=== PATIENT | female | born 2000 | race African-American/Black ===

== ENCOUNTER 2020-11-07 21:56 | Emergency (ER) | payer OTHER ==
[~2020-11-07] VITALS: Ht 167.6 cm; Wt 55.8 kg
--- NOTE | 2020-11-07 22:05 | NUR ---
DELICIA FROM HOME FOR C/O WORSENING ABD CRAMP AND N/V. LMP: 11/04/20. PER PT SHE IS NEWLY DIAGNOSED WITH OVARIAN CYST AND SHE IS EXPRIENCING THIS SEVERE CRAMP AND BLEEDING ALMOST EVERY MONTH. PT WAS ASSISTED TO BED 3 ER. WAS PLACED ON A MONITOR .VSS,
--- NOTE | 2020-11-07 22:20 | NUR ---
URINE COLLECTED. SENT TO LAB
[2020-11-07] MEDS ORDERED: ONDANSETRON HCL/PF 4 MG/2 ML VIAL ONE (22:24)
[2020-11-07] MEDS ORDERED: MORPHINE SULFATE INJ 4 MG/ML DISP.SYRIN ONE (22:24)
[2020-11-07] MEDS ORDERED: MORPHINE SULFATE INJ 2 MG/ML DISP.SYRIN IV ONE (22:30)
[2020-11-07] MEDS ORDERED: IV NS 0.9% 1,000 ML BAG IV ONE (22:30)
[2020-11-07] MEDS ORDERED: ONDANSETRON HCL/PF 4 MG/2 ML VIAL IVP ONE (22:30)
[2020-11-07 22:34] LABS: BASOPHILS # (AUTO) 0.1 /CMM (0.0-0.2); BASOPHILS % (AUTO) 0.7 % (0.0-2.0); HEMATOCRIT 44 % (33-45); HEMOGLOBIN 15.3 g/dL (11.5-14.8); LYMPHOCYTES # (AUTO) 0.5 /CMM (0.8-4.8); LYMPHOCYTES % (AUTO) 5.2 % (20.0-44.0); MEAN CORPUSCULAR HGB CONC 35 g/dl (31.0-36.0); MEAN CORPUSCULAR VOLUME 95 fL (82-100); MONOCYTES # (AUTO) 0.5 /CMM (0.1-1.30); MONOCYTES % (AUTO) 5.1 % (2.0-12.0); NEUTROPHILS # (AUTO) 8.8 /CMM (1.8-8.9); PLATELET COUNT (AUTO) 300 /CMM (150-450); RED BLOOD CELL COUNT(AUTO) 4.66 MIL/uL (4.0-5.2); WHITE BLOOD COUNT (AUTO) 9.9 K/uL (4.3-11.0)
[2020-11-07 22:35] LABS: BILIRUBIN,URINE MODERATE (NEGATIVE); COLOR,URINE YELLOW (YELLOW); LEUKOCYTE ESTERASE ,URINE NEGATIVE (NEGATIVE); NITRITE, URINE NEGATIVE (NEGATIVE); PROTEIN,URINE 30 mg/dl (NEGATIVE); UGLUCOSE NEGATIVE (NEGATIVE); UROBILINOGEN,URINE 0.2 EU/dL (0.2)
[2020-11-07 22:44] LABS: CALCIUM, SERUM 10.1 mg/dL (8.5-10.1); CREATININE 1.1 mg/dL (0.6-1.3)
[2020-11-07 22:46] LABS: BACTERIA,URINE Few /HPF (None Seen); MUCUS,URINE Few /LPF (None Seen); SQUAMOUS EPITHELIAL CELL,UR Few /HPF (None Seen)
[2020-11-07 22:49] LABS: BILIRUBIN,DIRECT 0.3 mg/dL (0.0-0.2); BILIRUBIN,TOTAL 1.6 mg/dL (0.2-1.0); TOTAL PROTEIN, SERUM 8.9 g/dL (6.4-8.2)
[2020-11-08] MEDS ORDERED: SULF1TAB48 PO (00:51)
[2020-11-08] MEDS ORDERED: ONDA4TAB11 PO (00:51)
--- NOTE | 2020-11-08 01:03 | NUR ---
PT IS MEDICALLY STABLE FOR D/C. IV removed. Catheter intact and site benign. Pressure and 4x4 applied to site. No bleeding noted.Patient discharged to home in stable condition. rx and Written and verbal after care instructions given. Patient verbalizes understanding of instruction.
[2020-11-08 01:04] VITALS: BP 106/67
== END 2020-11-08 01:05 | disposition home or self-care (01) ==
LOC: ER 21:58
DX: R10.13 Epigastric pain (principal); Z79.899 Other long term (current) drug therapy
CPT/HCPCS: 36415; 76705; 80048; 80076; 81001; 83690; 84703; 85025; 87086; 96361; 96374; 96375; 99284; J2270; J2405; J7030

== ENCOUNTER 2020-11-08 02:19 | Emergency (ER) | payer OTHER ==
[~2020-11-08] VITALS: Ht 167.6 cm; Wt 55.8 kg
[~2020-11-08 02:19] MED LIST: ONDA4TAB11 PO; SULF1TAB48 PO
--- NOTE | 2020-11-08 02:30 | NUR ---
PT BIBSELF C/O MIDSTERNAL CHEST PAIN. ALSO C/O NAUSEA. PT RECENTLY SEEN AND DISCHARGED FROM [facility] ER. PT AAOX4, APPEARS UNCOMFORTABLE. VITAL SIGNS STABLE. RESPIRATIONS EVEN AND UNLABORED. SKIN WARM AND INTACT. AMBULATORY WITH STEADY GAIT. PLACED ON MONITOR, WILL CONTINUE TO MONITOR
[2020-11-08] MEDS ORDERED: ONDANSETRON 4 MG TAB.RAPDIS ONE (02:31)
[2020-11-08] MEDS ORDERED: LORAZEPAM 1 MG TABLET ONE (02:46)
[2020-11-08] MEDS ORDERED: ONDANSETRON 4 MG TAB.RAPDIS SL ONE (03:00)
[2020-11-08] MEDS ORDERED: LORAZEPAM 1 MG TABLET PO ONE (03:00)
--- NOTE | 2020-11-08 03:50 | NUR ---
PT STILL C/O NAUSEA AND STILL APPEARS UNCOMFORTABLE. MD AWARE
[2020-11-08] MEDS ORDERED: ONDANSETRON HCL/PF 4 MG/2 ML VIAL IV ONE (04:00)
[2020-11-08] MEDS ORDERED: IV NS 0.9% 500 ML BAG IV ONE (04:00)
[2020-11-08] MEDS ORDERED: ONDANSETRON HCL/PF 4 MG/2 ML VIAL ONE (04:07)
[2020-11-08 05:07] VITALS: BP 146/79
--- NOTE | 2020-11-08 05:07 | NUR ---
Patient discharged to home in stable condition.No Nausea noted upon the D/C Written and verbal after care instructions given. Patient verbalizes understanding of instruction.IV removed. Catheter intact and site benign. Pressure and 4x4 applied to site. No bleeding noted.Ms Lynn is ambulatory with a steady gait walking without assistance to the Exit.
== END 2020-11-08 05:09 | disposition home or self-care (01) ==
LOC: ER 02:20
DX: R11.0 Nausea (principal); R07.89 Other chest pain; Z79.899 Other long term (current) drug therapy
CPT/HCPCS: 93005; 96374; 99283; J2405; J7040; Q0162